=== PATIENT | female | born 1990 | race Caucasian/White ===

== ENCOUNTER 2021-06-30 19:56 | Emergency (ER) | payer OTHER ==
[~2021-06-30] VITALS: Ht 149.9 cm; Wt 56.2 kg
[2021-06-30 20:07] VITALS: BP 123/67
--- NOTE | 2021-06-30 20:14 | NUR ---
to lobby to a/w evaluation
--- NOTE | 2021-06-30 23:00 | NUR ---
PT CALLED BY DR. FAJARDO IN LOBBY AND OUTSIDE WITH NO ANSWER.
--- NOTE | 2021-06-30 23:08 | NUR ---
PT CALLED IN LOBBY AND OUTSIDE WITH NO ANSWER.
--- NOTE | 2021-06-30 23:19 | NUR ---
PT CALLED IN LOBBY AND OUTSIDE WITH NO ANSWER. PATIENT LEFT WITHOUT BEING SEEN BY DR. FAJARDO. NO FURTHER CARE PROVIDED FOR PATIENT.
== END 2021-06-30 23:19 | disposition left against medical advice (07) ==
LOC: MED 19:56
DX: R10.9 Unspecified abdominal pain (principal); Z53.21 Procedure and treatment not carried out due to patient leaving prior to being seen by health care provider
CPT/HCPCS: 81002; 81025